=== PATIENT | female | born 1965 | race Caucasian/White ===

== ENCOUNTER 2017-07-26 14:25 | Inpatient (IN) ==
[2017-07-26] MEDS ORDERED: *HR* HYDROmorphone (PF) 1 MG/ML SYRINGE IVP ONE ×3 (15:30→19:29)
[2017-07-26] MEDS ORDERED: 0.9 % Sodium Chloride 1,000 ML IVC ONE (15:30)
[2017-07-26] MEDS ORDERED: Ondansetron 4 MG/2 ML VIAL IVP ONE ×2 (15:30→18:01)
--- NOTE | 2017-07-26 15:40 | Emergency Department Note ---
Disposition Clinical Impression: Abscess of jaw, left Disposition: Admitted As Inpatient Condition: Fair Time of Disposition: 18:00 General Adult HPI - General Chief complaint: ED Dental/Oral Stated complaint: dental pain Time Seen by Provider: 07/26/17 14:42 Source: patient Mode of arrival: ambulatory Limitations: no limitations Nursing Notes Reviewed: Yes Vital Signs Reviewed: Yes - History of Present Illness HPI Narrative: Patient is a 52-year-old female with no pertinent past medical history presenting to his primary complaint of left sided jaw pain status post teeth removal. The patient states that 2 weeks ago she was seen at [facility] and she had 8 teeth removed out of her bottom jaw. She states since that time she has has swelling and increasing pain on the left side of her jaw. She states that she returned to the facility one week ago and they told her that this is normal swelling and it should improve on her own. However, the patient states that the swelling has been increasing and she now has moderate pain on that left side with draining down the back of her throat as well as difficulty with opening her mouth and chewing. She denies any fevers, chills, nausea, vomiting. She states that she was seen in urgent care 3 days ago and she was given steroids and [place] however this does not help the pain. Pain Scale: 6 - Related Data Home Medications Medication Instructions Recorded Confirmed Clonazepam 10/29/15 [place] 5-325 mg 10/29/15 Seroquel 10/29/15 Carbidopa-Levo ER 25-100 Tab 07/24/17 07/24/17 Gabapentin [Neurontin] 07/24/17 HydrOXYzine Pamoate [Vistaril] 07/24/17 Meloxicam 07/24/17 Potassium Chloride 07/24/17 Raloxifene 07/24/17 Venlafaxine HCl 07/24/17 Venlafaxine XR (24 HR) [Effexor XR] 07/24/17 Previous Rx's Medication Instructions Recorded Naproxen [Naprosyn] 500 mg PO BID 3 Days tablet 10/29/15 HYDROcodone/Acet 5/325 mg [[place] 1 tab PO Q6H PRN #8 tab MDD 4 tabs 07/24/17 5-325 mg] MethylPREDNISolone 4 mg PO PER PKG DI #21 tab 07/24/17 [MethylPREDNISolone Dose Pack] Allergies Allergy/AdvReac Type Severity Reaction Status Date / Time No Known Allergies Allergy Verified 07/26/17 14:31 Review of Systems: Constitutional: No fever ENT: No rhinorrhea, jaw pain on the left with swelling, and pustular drainage. Respiratory: No cough, no difficulty breathing Cardiac: No chest pain or palpitations Allergic: No allergies GI: No abdominal pain or diarrhea. No nausea or vomiting. Hematologic: No bruising Dermatologic: No skin rash Musculoskeletal: No pain in the extremities Neuro: No numbness of the extremities All systems ED: reviewed and negative except as stated. Review of Systems: As Per HPI Past Medical History - Past Medical History Medical history: Reports: no medical history Psychiatric history: Reports: anxiety, depression - Social History Smoking Status: Current every day smoker Smokeless Tobacco Status: No Alcohol use: Reports: none Drug use: Reports: none Physical Exam CONSTITUTIONAL: Alert and oriented X3, well-nourished, in no apparent distress HEAD: Normocephalic; atraumatic. Patient has large swelling to the left side over the parotid gland/angle of mandible stemming down into the submandibular region. This area of swelling does feel fluctuant. There is no erythema over the area or crepitance. EYES: PERRL, no scleral icterus. NOSE: The nose is normal in appearance without rhinorrhea MOUTH: Patient's mouth does appear that she had a procedure in which the teeth on the bottom row were removed and appears to be well hearing in the healing in the front. However back near the molar spaces there is mild gingival swelling, however this exam is limited due to the patient only be also open her mouth by about 1/2 cm secondary to the pain caused by the swelling. RESP: Normal chest excursion with respiration; breath sounds clear and equal bilaterally; no wheezes, rhonchi, or rales CARD: Regular rhythm, without murmurs, rub or gallop ABD: Non-distended; non-tender, soft,without rigidity, rebound or guarding SKIN: Normal for age and race; warm and dry; no apparent lesions - General General appearance: alert, in no apparent distress Course Course Narrative: Patient is a 52-year-old female with past medical history of a teeth being removed from her lower jaw for denture placement. She is complaining of swelling on that left side over the mandible and submandibular region that has been going on since the procedure started and has been worsening since that time to the point now where the patient has severe pain she has limited motion of her jaw she states she is having difficulty with eating she feels drainage down the back of her throat. Plan for this patient is a treat her pain and treat nausea I will also order a CT of the neck to obtain a review of the affected area will reevaluate the patient. I think concern is for an infection of the soft tissue or bone. - Reevaluation(s) Reevaluation #1: Spoke with Dr. Browne about the patient's case. He will see the patient tonight to see if she is a candidate for bedside drainage, if not operative drainage will happen in the morning. Request treatment the patient to the hospitalist service. I discussed these findings with the patient, patient agrees with that plan. She requested additional pain medications. Dr. Browne also requested we start the patient on clindamycin since she is recently on Augmentin. Time: 17:57 Reevaluation #2: I spoke with Alirio Tsai and she agrees to accept the patient to the hospitalist with consult to ENT. Discussed my conversation with Dr. Martinez and she agrees with this plan. Time: 18:15 Vital Signs Temperature 98.5 F 07/26/17 14:27 Pulse Rate 84 07/26/17 14:27 Respiratory Rate 16 07/26/17 14:27 Blood Pressure 149/91 07/26/17 14:27 O2 Sat by Pulse Oximetry 97 07/26/17 14:27 Temperature 0 F L 07/26/17 18:44 Pulse Rate 84 07/26/17 16:17 Respiratory Rate 18 07/26/17 18:44 Blood Pressure 138/82 07/26/17 18:44 O2 Sat by Pulse Oximetry 98 07/26/17 16:17 Oxygen Delivery Oxygen Delivery Room Air Medical Decision Making - Medical Records Medical records reviewed: Yes I reviewed the patient's medical records. - Lab Data Lab results reviewed: Yes I reviewed the patient's lab results. Result diagrams: 07/26/17 15:30 07/26/17 15:30 Lab Results 07/26/17 07/26/17 Range/Units 15:30 15:30 WBC 30.8 H* D (4.3-11.1) K/mcL RBC 4.07 (3.82-4.97) M/mcL Hgb 11.3 L (11.5-15.4) g/dL Hct 34.7 L (35.3-44.9) % MCV 85.3 (83.0-100.0) fL MCH 27.8 L (28.0-33.3) pg MCHC 32.6 (31.6-35.5) g/dL RDW 18.1 H (11.5-14.5) % Plt Count 508 H D (140-400) K/mcL MPV 9.9 (9.4-12.4) fL Seg Neutrophils % 88.0 % Lymphocytes % 10.0 % Monocytes % 2.0 % Neutrophils # 27.1 H (1.6-8.9) K/mcL Lymphocytes # 3.1 (0.6-4.6) K/mcL Monocytes # 0.6 (0.0-1.3) K/mcL Platelet Estimate Increased H (Normal) Anisocytosis 1+ A (Not Present) Sodium 141 (136-145) mEq/L Potassium 3.2 L (3.5-4.5) mEq/L Chloride 115 H (98-109) mEq/L Carbon Dioxide 13 L (19-29) mEq/L BUN 11 (7-20) mg/dL Creatinine 0.87 (0.57-1.11) mg/dL Est GFR ( Amer) > 60 (> 60) Est GFR (Non-Af Amer) > 60 (> 60) BUN/Creatinine Ratio 13 (6-26) Glucose 112 H (70-99) mg/dL Calculated Osmolality 292 (280-300) Calcium 8.7 (8.6-10.8) mg/dL - Radiology Data Radiology results reviewed: Yes I reviewed the patient's radiology results. Soft Tissue Neck CT 07/26/17 15:29 IMPRESSION: Approximately 4.9 x 3.5 x 4.6 cm irregular peripherally enhancing collection centered within the left recruiter specialist space adjacent to the left mandible. Extension of this fluid collection into adjacent structures as detailed above. Findings are most concerning for infectious abscess.Necrotic neoplasm would be extremely rare. Patient does not have any teeth, and reports recent tooth extraction two weeks ago. Mild mass effect on the adjacent oropharyngeal airway. Mildly enlarged bilateral cervical lymph nodes. Nonspecific ground-glass pulmonary opacities are partially imaged. Findings could represent atelectasis, edema, or atypical infection. D/ / 07/26/2017 17:40:32 Nick Razo MD / liliya Interpreting Provider: Nick Razo MD Attestation Statement - Attestation Attestation: I examined this patient and my medical decision-making was reviewed with the Resident Physician. I agree with the documented findings, disposition and treatment plan as described.
[2017-07-26 15:44] LABS: Hematocrit 34.7 % (35.3-44.9); Hemoglobin 11.3 g/dL (11.5-15.4); Mean Corpuscular HGB Conc 32.6 g/dL (31.6-35.5); Mean Corpuscular Hemoglobin 27.8 pg (28.0-33.3); Mean Corpuscular Volume 85.3 fL (83.0-100.0); Red Blood Count 4.07 M/mcL (3.82-4.97); Red Cell Distribution Width 18.1 % (11.5-14.5)
[2017-07-26 15:45] LABS: Mean Platelet Volume 9.9 fL (9.4-12.4); Platelet Count 508 K/mcL (140-400)
[2017-07-26 15:56] LABS: BUN/Creatinine Ratio 13 (6-26); Blood Urea Nitrogen 11 mg/dL (7-20); Calcium 8.7 mg/dL (8.6-10.8); Carbon Dioxide 13 mEq/L (19-29); Chloride 115 mEq/L (98-109); Glucose 112 mg/dL (70-99); Osmolality,Calculated 292 (280-300); Potassium 3.2 mEq/L (3.5-4.5); Sodium 141 mEq/L (136-145); eGFR For African Americans > 60 (> 60); eGFR For Non-African Americans > 60 (> 60)
[2017-07-26 16:05] LABS: Lymphocytes # 3.1 K/mcL (0.6-4.6); Monocytes # 0.6 K/mcL (0.0-1.3); Neutrophils # 27.1 K/mcL (1.6-8.9)
[2017-07-26 16:06] LABS: Anisocytosis 1+ (Not Present); Platelet Estimate Increased (Normal)
[2017-07-26] MEDS ORDERED: Ampicillin/Sulbactam 3,000 MG in 0.9 % Sodium Chloride Mini Bag 100 ML IVPB ONE (17:53)
[2017-07-26] MEDS ORDERED: Clindamycin 900 MG/50 ML 900 MG/50 ML IV.SOLN IVPB ONE (18:00)
[2017-07-26] MEDS ORDERED: Clindamycin 600 MG/50 ML 600 MG/50 ML IV.SOLN IVPB ONE (18:01)
--- NOTE | 2017-07-26 19:24 | ENT - Consult Note ---
Date of Encounter: 07/26/17 Time of Encounter: 19:21 Assessment and Plan (1) Neck abscess Current Visit: Yes Status: Acute s/p bedside I&D today. Patient tolerated this well. Please change dressing as needed. 09/10" packing gauze in place, will pull each day until out. Approx 2 inches placed. Cultures taken, will await sensitivities. Clindamycin IV for now. There is mention of C Diff in her chart but she denies this and any hx of severe diarrhea. Ok for regular diet as tolerated Afebrile, WBC 30. Watch WBC count and temp curves. (2) S/P tooth extraction Current Visit: No Status: Acute (3) Abscess of jaw, left Current Visit: Yes Status: Acute (4) Leukocytosis Current Visit: Yes Status: Acute Qualifiers: Qualified Code(s): D72.829 - Elevated white blood cell count, unspecified History of Present Illness Consult date: 07/26/17 Reason for ENT Consult: other (neck abscess) History of present illness: Pt is a 52 yo female with a left neck abscess involving the dial buffer space. She had left mandibular dental extractions 2 weeks ago with progression of pain , swelling, and fluctuance over the last week. Was seen in an urgent care. Has failed outpatient Augmentin over the last few days. Denies SOB, dyspnea, or airway concerns. Her main complaint is the swelling and pain. Admits to increasing odynophagia but is able to swallow food once she gets it. + trismus. Denies ill symptoms such fever, sweats, or nausea. Denies prior abscess in the head and neck. She had her maxillary teeth pulled years ago without problem. Denies bleeding disorders or blood thinner use. Daily smoker. Past Med Surg Social Fam HX - Past Medical History Medical history: no medical history Psychiatric history: anxiety, depression - Social History Smoking Status: Current every day smoker Smokeless Tobacco Status: No Alcohol use: none Drug use: none Medications and Allergies Clonazepam 10/29/15 [History] Naproxen [Naprosyn] 500 mg PO BID 3 Days tablet 10/29/15 [Rx] [place] 5-325 mg 10/29/15 [History] Seroquel 10/29/15 [History] Carbidopa-Levo ER 25-100 Tab 07/24/17 [History] Gabapentin [Neurontin] 07/24/17 [History] HYDROcodone/Acet 5/325 mg [[place] 5-325 mg] 1 tab PO Q6H PRN #8 tab MDD 4 tabs [Rx] HydrOXYzine Pamoate [Vistaril] 07/24/17 [History] Meloxicam 07/24/17 [History] MethylPREDNISolone [MethylPREDNISolone Dose Pack] 4 mg PO PER PKG DI #21 tab [Rx] Potassium Chloride 07/24/17 [History] Raloxifene 07/24/17 [History] Venlafaxine HCl 07/24/17 [History] Venlafaxine XR (24 HR) [Effexor XR] 07/24/17 [History] 3 Allergy/AdvReac Type Severity Reaction Status Date / Time No Known Allergies Allergy Verified 07/26/17 14:31 ENT - ROS All systems PM: reviewed and no additional remarkable complaints except as stated ENT Exam Initial Vital Signs Temp Pulse Resp BP Pulse Ox 98.5 F 84 16 149/91 97 07/26/17 14:27 07/26/17 14:27 07/26/17 14:27 07/26/17 14:27 07/26/17 14:27 - General physical appearance well developed, well nourished, no distress - Eyes PERRL, normal ocular movement - ENT normal pinna, normal nares, Other (left dial buffer space abscess with fluctuance overlying the angle of the left mandible that extends to the left neck. No ear involvement. Minimal skin cellulitis. + trisumus, no obvious abscess identified intraorally. Evidence of recent mandibular dental extractions. Facial nerve intact b/l) - Neck other (see ENT exam above, left neck abscess overlying the angle of the mandible ) - Respiratory normal expansion, normal respiratory effort - Abdomen Abdomen: no tender, no distended - Integumentary no rash, no growths - Neurologic CN 2-12 grossly intact - Musculoskeletal normal gait, normal posture - Psychiatric oriented to time, oriented to person, oriented to place - Additional Findings Procedure note: Preop dx: Left neck abscess Postop dx: same Procedure: I&D left neck abscess Anesthesia: local with 1% lido with 1:100,000 epi 10ml used. Complications: none specimen: cultures EBL: less than 10ml Procedure: After consent was signed, time out was done. I cleaned the area over the abscess with betadine and injected local anesthetic into the skin and surrounding tissues. A 15 blade scalpel was used to make a 1cm incision near the angle the mandible. Dissection continued with a hemastat until the abscess cavity was entered. Large amounts of purulence drained freely and cultures were taken. Once drained, sterile saline was used to irrigate the wound and it was suctioned dry. 09/10" packing gauze was placed into the wound which was left open. A clean gauze and tape dressing was then applied over the wound. The patient tolerated this well. Exam Initial Vital Signs Temp Pulse Resp BP Pulse Ox 98.5 F 84 16 149/91 97 07/26/17 14:27 07/26/17 14:27 07/26/17 14:27 07/26/17 14:27 07/26/17 14:27 Results - Labs 07/26/17 15:30 07/26/17 15:30 Abnormal lab results WBC 30.8 K/mcL (4.3-11.1) H* D 07/26/17 15:30 Hgb 11.3 g/dL (11.5-15.4) L 07/26/17 15:30 Hct 34.7 % (35.3-44.9) L 07/26/17 15:30 MCH 27.8 pg (28.0-33.3) L 07/26/17 15:30 RDW 18.1 % (11.5-14.5) H 07/26/17 15:30 Plt Count 508 K/mcL (140-400) H D 07/26/17 15:30 Neutrophils # 27.1 K/mcL (1.6-8.9) H 07/26/17 15:30 Platelet Estimate Increased (Normal) H 07/26/17 15:30 Anisocytosis 1+ (Not Present) A 07/26/17 15:30 Potassium 3.2 mEq/L (3.5-4.5) L 07/26/17 15:30 Chloride 115 mEq/L (98-109) H 07/26/17 15:30 Carbon Dioxide 13 mEq/L (19-29) L 07/26/17 15:30 Glucose 112 mg/dL (70-99) H 07/26/17 15:30 All other labs normal. Consult Discharge Plan - Plan Referrals: Franco Moreno MD [Primary Care Provider] -
[2017-07-26] MEDS ORDERED: Lidocaine/EPI 1:100k 1% 20 ML VIAL INFILT ONE (19:25)
[2017-07-26] MEDS ORDERED: *HR* Morphine 2 MG/ML SYRINGE IVP PRN (22:09)
[2017-07-26] MEDS ORDERED: Naloxone 0.4 MG/ML INJ IVP PRN (22:17)
--- NOTE | 2017-07-26 22:23 | Internal Med History&Physical ---
<Tomas Ramachandran - Last Filed: 07/26/17 22:21> Date of Encounter: 07/26/17 Time of Encounter: 22:21 Assessment and Plan (1) Abscess of jaw, left Current visit: Yes Status: Acute Abscess of left jaw, likely source of infection due to multiple tooth extractions approximately 2 weeks ago. ENT consulted, performed bedside incision and drainage today 1/4 inch gauze packing placed a drainage site with orders to change daily Wound cultures obtained, anaerobic cultures obtained, blood cultures obtained Start vancomycin with pharmacy to dose now and Zosyn every 8 hours now Patient is hemodynamically stable, afebrile and nontoxic appearing. However she does have leukocytosis with leftward shift neutrophils 27.1. Continue watch for signs or symptoms of infection, CBC and BMP in the morning (2) Jaw pain Current visit: Yes Status: Acute Continues to have pain at site of abscess. Pain is improved since incision and drainage. Start morphine 4 mg IV push every 6 hours when necessary for severe pain (3) S/P tooth extraction Current visit: Yes Status: Acute And 8 teeth extracted approximately 2 weeks ago. Is reporting an increase in pain and swelling the left jaw. CT of the head reveals abscess of left jaw. See plan above (4) Leukocytosis Current visit: Yes Status: Acute Leukocytosis with neutrophils of 27.1. Patient appears nontoxic. Infection the result of left jaw abscess. See plan above Qualifiers: Leukocytosis type: unspecified Qualified Code(s): D72.829 - Elevated white blood cell count, unspecified Internal Medicine - H&P: HPI Chief complaint: ABSCESS OF LEFT JAW Admitted From: Home Plans for Post Hospital Care: Home History of present illness: Ms. Johnson is a 52 year old female reporting no prior past medical history. Presents to [facility] today with pain and swelling of left jaw and left neck. She reports that approximately 2 weeks ago she had a dental extraction involving 8 teeth. She reports that for the last 2 weeks she has had an increase in pain and swelling of her left jaw. She reports that she went back to dental office where procedure was completed and they told her that swelling and pain were normal and should improve with time. Additionally she reports that she went to urgent care and was given Augmentin, however has failed outpatient treatment swelling and pain persists. She denies shortness of breath, nausea, vomiting, night sweats, headaches. Admits to fever, chills, difficulty chewing and swallowing. Workup in the emergency department revealed elevated WBCs at 30.[address] of head reveals left total abscess Past Med Surg Social Fam HX - Past Medical History Medical history: no medical history Psychiatric history: anxiety, depression - Social History Smoking Status: Current every day smoker Smokeless Tobacco Status: No Alcohol use: none Drug use: none - Additional Family History Additional family history: Noncontributory Internal Medicine - H&P: Meds Clonazepam 10/29/15 [History] Naproxen [Naprosyn] 500 mg PO BID 3 Days tablet 10/29/15 [Rx] [place] 5-325 mg 10/29/15 [History] Seroquel 10/29/15 [History] Carbidopa-Levo ER 25-100 Tab 07/24/17 [History] Gabapentin [Neurontin] 07/24/17 [History] HYDROcodone/Acet 5/325 mg [[place] 5-325 mg] 1 tab PO Q6H PRN #8 tab MDD 4 tabs [Rx] HydrOXYzine Pamoate [Vistaril] 07/24/17 [History] Meloxicam 07/24/17 [History] MethylPREDNISolone [MethylPREDNISolone Dose Pack] 4 mg PO PER PKG DI #21 tab [Rx] Potassium Chloride 07/24/17 [History] Raloxifene 07/24/17 [History] Venlafaxine HCl 07/24/17 [History] Venlafaxine XR (24 HR) [Effexor XR] 07/24/17 [History] 3 Allergy/AdvReac Type Severity Reaction Status Date / Time No Known Allergies Allergy Verified 07/26/17 14:31 All Systems PM: A 10-system review of systems was performed and is negative for pertinent findings except as documented above in the HPI. - Constitutional Constitutional: chills, fatigue, fever(s), lethargy - EENT Nose, mouth and throat: facial pain, no mouth pain, no neck mass, no sore throat , no throat swelling, no tongue swelling Additional comments: Swelling of left jaw, positive for trismus, pain in left chest radiating to left neck - Cardiovascular Cardiovascular ROS IM: no chest pain, no diaphoresis, no dyspnea, no lightheadedness, no palpitations, no syncope - Respiratory Respiratory: no cough, no dyspnea, no wheezing, no excessive phlegm production - Gastrointestinal Gastrointestinal: no abdominal pain, no diarrhea, no hematemesis, no hematochezia, no melena, no nausea, no vomiting - Genitourinary Genitourinary: no change in urinary stream, no dysuria, no flank pain, no hematuria - Musculoskeletal Musculoskeletal ROS IM: no numbness, no tingling - Integumentary Integumentary IM: no rash, no unusual bruising - Constitutional Vitals: Temp Pulse Resp BP Pulse Ox 99.1 F 94 15 129/85 93 07/26/17 19:34 07/26/17 19:34 07/26/17 19:34 07/26/17 19:34 07/26/17 19:34 General appearance: Present: cooperative, A&O X 3, no acute distress, answers questions appropriately - Head Head exam: Present: atraumatic, normocephalic - ENT Additional comments: Incision and drainage of left jaw with ribbon packing, no swelling at this time. Left jaw tender to palpation - Neck Neck exam general surgery: Present: supple, trachea midline. Absent: tenderness - Respiratory Respiratory exam: Present: CTAB. Absent: accessory muscle use, rales, rhonchi, wheezes - Cardiovascular Cardiovascular exam: Present: RRR, +S1, +S2. Absent: diastolic murmur, gallop, rubs, systolic murmur - GI/Abdominal GI/Abdominal exam: Present: normal bowel sounds, soft, no peritoneal signs. Absent: distended, tenderness - Extremities Exam Extremities exam: Present: warm, radial pulses palpable and symmetrical. Absent : calf tenderness, cyanotic, pedal edema - Neurological Exam Neurological exam: Present: alert, oriented X3. Absent: facial droop, speech deficit - Skin Skin exam: Present: dry, intact Internal Med - H&P Results - Labs CBC & Chem 7: 07/26/17 15:30 07/26/17 15:30 - Diagnostic Studies CT scan - head Status: image reviewed by me Additional comments: 1. Approximately 4.9 x 3.5 x 4.6 cm irregular peripherally enhancing collection centered within the left drill presser space adjacent to the left mandible. Extension of this fluid collection into adjacent structures as detailed above. Findings are most concerning for infectious abscess.Necrotic neoplasm would be extremely rare. Patient does not have any teeth, and reports recent tooth extraction two weeks ago. 2. Mild mass effect on the adjacent oropharyngeal airway. 3. Mildly enlarged bilateral cervical lymph nodes. 4. Nonspecific ground-glass pulmonary opacities are partially imaged. Findings could represent atelectasis, edema, or atypical infection. - VTE Reasons for not Prescribing Prophylaxis: Treatment not Indicated - Low risk for VTE <Dave Salmeron - Last Filed: 07/27/17 04:55> Date of Encounter: 07/27/17 Internal Medicine - H&P: HPI History of present illness: Ms. Johnson is a 52 year old female All Systems PM: A 10-system review of systems was performed and is negative for pertinent findings except as documented above in the HPI. - Constitutional Vitals: Temp Pulse Resp BP Pulse Ox 98.5 F 85 16 106/63 95 07/27/17 03:41 07/27/17 03:41 07/27/17 03:41 07/27/17 03:41 07/27/17 03:41 Internal Med - H&P Results - Labs CBC & Chem 7: 07/26/17 15:30 07/26/17 15:30 - Attending Attestation I have seen and examined the patient independently. I have discussed with CLIENT APPLICATION SUPPORT SPECIALIST Mr Ramachandran regarding the management. Agree with that documentation. Patient has a jaw abscess. ENT saw patient and did I and D. We will continue antibiotics. Follow blood and wound culture results
[2017-07-26] MEDS ORDERED: Vancomycin 750 MG in D5% in Water 250 ML IVPB SCH (23:00)
[2017-07-26] MEDS: Vancomycin 750 MG in D5% in Water 250 ML IVPB SCH (23:32)
[2017-07-26] MEDS: Piperacillin/Tazobactam 3.375 GM in D5% in Water 50 ML IVPB SCH (23:33)
[2017-07-27] MEDS ORDERED: 0.9 % Sodium Chloride 250 ML ONE (00:34)
[2017-07-27 04:49] LABS: Basophils % 0.2 %; Eosinophils # 0.2 K/mcL (0.0-0.6); Eosinophils % 1.3 %; Hematocrit 30.6 % (35.3-44.9); Immature Granulocytes % 0.8 % (0-4); Lymphocytes % 11.2 %; Mean Corpuscular HGB Conc 32.7 g/dL (31.6-35.5); Mean Corpuscular Hemoglobin 27.9 pg (28.0-33.3); Mean Corpuscular Volume 85.2 fL (83.0-100.0); Mean Platelet Volume 9.8 fL (9.4-12.4); Monocytes # 1.2 K/mcL (0.0-1.3); Monocytes % 6.4 %; Neutrophils # 14.3 K/mcL (1.6-8.9); Platelet Count 431 K/mcL (140-400); Red Blood Count 3.59 M/mcL (3.82-4.97); Red Cell Distribution Width 18.5 % (11.5-14.5); Segmented Neutrophils % 80.1 %
[2017-07-27] MEDS ORDERED: *HR* Morphine 2 MG/ML SYRINGE IVP PRN (04:54)
[2017-07-27 05:02] LABS: BUN/Creatinine Ratio 13 (6-26); Blood Urea Nitrogen 9 mg/dL (7-20); Calcium 7.8 mg/dL (8.6-10.8); Carbon Dioxide 14 mEq/L (19-29); Chloride 116 mEq/L (98-109); Glucose 93 mg/dL (70-99); Osmolality,Calculated 286 (280-300); Potassium 2.9 mEq/L (3.5-4.5); Sodium 139 mEq/L (136-145); eGFR For African Americans > 60 (> 60); eGFR For Non-African Americans > 60 (> 60)
[2017-07-27] MEDS ORDERED: Aminoglycoside Consult 1 EACH MC ONE (08:10)
[2017-07-27] MEDS: Piperacillin/Tazobactam 3.375 GM in D5% in Water 50 ML IVPB SCH (08:19)
--- NOTE | 2017-07-27 08:45 | Internal Med Progress Note ---
<Shalonda Garcia - Last Filed: 07/27/17 11:07> Date of Encounter: 07/27/17 Time of Encounter: 08:30 - Assessment and plan (1) Abscess of jaw, left Current Visit: Yes Status: Acute Assessment and plan: -I & D done yesterday by ENT. Dressing is clean, dry, and intact. -No wound culture or blood culture results available. -IV antibiotics: Vancomycin and Zosyn -Leukocytosis improved, now 17.8 and neutrophil count decreased to 14.3 -Continue dressing changes and wound packing as described by ENT. -Continue monitoring WBC count and temperature. (2) Jaw pain Current Visit: Yes Status: Acute Assessment and plan: -some tenderness to palpation around I & D site -received 2mg morphine this AM for pain (3) S/P tooth extraction Current Visit: Yes Status: Acute Assessment and plan: -s/p extraction of 8 teeth approx 2 weeks ago. 07/26/17 CT head showed abscess of left jaw, I & D of abscess as above (4) Leukocytosis Current Visit: Yes Status: Acute Assessment and plan: -afebrile, non-toxic appearing, normotensive, no tachycardia -receiving IV vancomycin and zosyn -white count has decreased to 17.8 and neutrophil count has decreased to 14.3 Qualifiers: Leukocytosis type: unspecified Qualified Code(s): D72.829 - Elevated white blood cell count, unspecified - Subjective Interval history: Patient seen and examined at bedside this morning. Patient states she is feeling quite well. She denies left-sided facial pain or neck pain this morning. She denies fever, chills, chest pain, cough, difficulty breathing, abdominal pain, nausea, emesis. - Constitutional Vitals: Temp Pulse Resp BP Pulse Ox 97.9 F 92 15 118/58 92 07/27/17 06:42 07/27/17 06:42 07/27/17 06:42 07/27/17 06:42 07/27/17 06:42 General appearance: Present: cooperative, A&O X 3, no acute distress, answers questions appropriately - Head Head exam: Present: atraumatic, normocephalic Additional comments: I & D site Lt mandible, dressing is clean, dry, and intact - Eye Eye exam: Present: EOMI - ENT ENT exam: Present: mucous membranes moist - Neck Neck exam general surgery: Present: trachea midline Additional comments: no significant neck swelling, good ROM without pain - Respiratory Respiratory exam: Present: rales (RLL). Absent: respiratory distress, rhonchi, wheezes, tachypnea - Cardiovascular Cardiovascular exam: Present: RRR, +S1, +S2. Absent: diastolic murmur, systolic murmur - GI/Abdominal GI/Abdominal exam: Present: normal bowel sounds, soft. Absent: tenderness - Neurological Exam Neurological exam: Present: alert, altered, oriented X3, no focal deficits. Absent: facial droop, speech deficit Internal Medicine: Result - Labs CBC & Chem 7: 07/27/17 04:22 07/27/17 04:22 Labs: Short CBC 07/27/17 Range/Units 04:22 WBC 17.8 H (4.3-11.1) K/mcL Hgb 10.0 L (11.5-15.4) g/dL Hct 30.6 L (35.3-44.9) % Plt Count 431 H (140-400) K/mcL Neutrophils # 14.3 H (1.6-8.9) K/mcL BMP 07/27/17 04:22 Sodium 139 Potassium 2.9 L Chloride 116 H Carbon Dioxide 14 L BUN 9 Creatinine 0.67 Glucose 93 Calcium 7.8 L - VTE Reasons for not Prescribing Prophylaxis: Treatment not Indicated - Low risk for VTE Consult Discharge Plan - Plan Referrals: Franco Moreno MD [Primary Care Provider] - <Mo Meier H - Last Filed: 07/27/17 15:22> Date of Encounter: 07/27/17 - Constitutional Vitals: Temp Pulse Resp BP Pulse Ox 98.8 F 73 14 118/69 98 07/27/17 14:42 07/27/17 14:42 07/27/17 14:42 07/27/17 14:42 07/27/17 14:42 Internal Medicine: Result - Labs CBC & Chem 7: 07/27/17 04:22 07/27/17 04:22 Labs: Short CBC 07/27/17 Range/Units 04:22 WBC 17.8 H (4.3-11.1) K/mcL Hgb 10.0 L (11.5-15.4) g/dL Hct 30.6 L (35.3-44.9) % Plt Count 431 H (140-400) K/mcL Neutrophils # 14.3 H (1.6-8.9) K/mcL BMP 07/27/17 04:22 Sodium 139 Potassium 2.9 L Chloride 116 H Carbon Dioxide 14 L BUN 9 Creatinine 0.67 Glucose 93 Calcium 7.8 L - Attending Attestation 1)sepsis 2ry to left periodontal/jaw abscess switch antibiotic therapy to Unasyn 3 g IV q6h IVF await cultures toradol prn 2) tobacco use nicotine patch 3) hypokalemia, replete as needed 4) depression I examined this patient and my medical decision-making was reviewed with the Resident Physician. I agree with the documented findings, disposition and treatment plan as described except to the extent set forth below.
[2017-07-27] MEDS ORDERED: Potassium Chloride Elixir 20 MEQ/15 ML UDC PO ONE (10:14)
[2017-07-27 10:36] LABS: Magnesium 1.8 mg/dL (1.6-2.6)
[2017-07-27] MEDS: Vancomycin 750 MG in D5% in Water 250 ML IVPB SCH (11:34)
[2017-07-27] MEDS: *HR* Morphine 2 MG/ML SYRINGE IVP PRN ×3 (13:07→19:41)
[2017-07-27] MEDS ORDERED: Ampicillin/Sulbactam 3,000 MG in 0.9 % Sodium Chloride Mini Bag 100 ML IVPB SCH (15:08)
[2017-07-27] MEDS: Ketorolac 30 MG/ML VIAL IVP PRN (16:57)
--- NOTE | 2017-07-27 17:04 | ENT - Progress Note ---
<Heather Godinez - Last Filed: 07/27/17 17:02> Date of Encounter: 07/27/17 Time of Encounter: 17:02 - Assessment and Plan (1) Abscess of jaw, left Current Visit: Yes Status: Acute Patient seen and examined at bedside. No drainage noted from incision site. Area of induration noted to be 4x6cm in size, with no warmth, or redness present. 2cm packing left in place, new clean outer dressing applied. Will reassess in the A.M. Continue current IV antibiotic regimen and transition to oral antibiotics at discharge. Awaiting cultures at this time. (2) Jaw pain Current Visit: Yes Status: Acute Mild pain noted with palpation of I&D site and surrounding tissue. Continue current pain management measures. (3) S/P tooth extraction Current Visit: Yes Status: Acute Continue current IV antibiotic regimen at this time, awaiting cultures. If reformation occurs patient may need transferred to tertiary facility with oral surgeon. (4) Thrush, oral Current Visit: Yes Status: Acute Noted to be present on tongue and buccal mucosa. Will start Nystatin swish and spit. Subjective Patient reports: feels better, still having pain, pain is less, tolerating liquids well, tolerating a regular diet, afebrile Objective Initial Vital Signs Temp Pulse Resp BP Pulse Ox 98.5 F 84 16 149/91 97 07/26/17 14:27 07/26/17 14:27 07/26/17 14:27 07/26/17 14:27 07/26/17 14:27 - General physical appearance no distress - Eyes normal ocular movement - ENT normal pinna, normal nares, Other (4 x6 cm area of induration surrounding I&D incision site with no redness or warmth noted, no purulent drainage noted, packing in place. Patient noted to have trismus, 2 cm. Edentulous lower gums, with upper denture plate in place. White coating present on top of tongue and buccal mucosa. ) - Neck no masses, trachea midline - Respiratory normal expansion, normal respiratory effort - Labs 07/27/17 04:22 07/27/17 04:22 Diabetes panel 07/27/17 Range/Units 04:22 Sodium 139 (136-145) mEq/L Potassium 2.9 L (3.5-4.5) mEq/L Chloride 116 H (98-109) mEq/L Carbon Dioxide 14 L (19-29) mEq/L BUN 9 (7-20) mg/dL Creatinine 0.67 (0.57-1.11) mg/dL Glucose 93 (70-99) mg/dL Calcium 7.8 L (8.6-10.8) mg/dL Calcium panel 07/27/17 Range/Units 04:22 Calcium 7.8 L (8.6-10.8) mg/dL Pituitary panel 07/27/17 Range/Units 04:22 Sodium 139 (136-145) mEq/L Potassium 2.9 L (3.5-4.5) mEq/L Chloride 116 H (98-109) mEq/L Carbon Dioxide 14 L (19-29) mEq/L BUN 9 (7-20) mg/dL Creatinine 0.67 (0.57-1.11) mg/dL Glucose 93 (70-99) mg/dL Calcium 7.8 L (8.6-10.8) mg/dL Adrenal panel 07/27/17 Range/Units 04:22 Sodium 139 (136-145) mEq/L Potassium 2.9 L (3.5-4.5) mEq/L Chloride 116 H (98-109) mEq/L Carbon Dioxide 14 L (19-29) mEq/L BUN 9 (7-20) mg/dL Creatinine 0.67 (0.57-1.11) mg/dL Glucose 93 (70-99) mg/dL Calcium 7.8 L (8.6-10.8) mg/dL - VTE Reasons for not Prescribing Prophylaxis: Treatment not Indicated - Low risk for VTE Consult Discharge Plan - Plan Referrals: Franco Moreno MD [Primary Care Provider] - <Iliana Villar - Last Filed: 07/27/17 19:23> Date of Encounter: 07/27/17 - Assessment and Plan (1) Abscess of jaw, left Current Visit: Yes Status: Acute Agree with nurse practitioner's assessment above. Patient was examined together with the nurse practitioner. Patient with no purulent drainage from incision site. Packing remained clean. Likely remove packing tomorrow. We will continue to monitor. Objective Initial Vital Signs Temp Pulse Resp BP Pulse Ox 98.5 F 84 16 149/91 97 07/26/17 14:27 07/26/17 14:27 07/26/17 14:27 07/26/17 14:27 07/26/17 14:27 - Labs 07/27/17 04:22 07/27/17 04:22 Diabetes panel 07/27/17 Range/Units 04:22 Sodium 139 (136-145) mEq/L Potassium 2.9 L (3.5-4.5) mEq/L Chloride 116 H (98-109) mEq/L Carbon Dioxide 14 L (19-29) mEq/L BUN 9 (7-20) mg/dL Creatinine 0.67 (0.57-1.11) mg/dL Glucose 93 (70-99) mg/dL Calcium 7.8 L (8.6-10.8) mg/dL Calcium panel 07/27/17 Range/Units 04:22 Calcium 7.8 L (8.6-10.8) mg/dL Pituitary panel 07/27/17 Range/Units 04:22 Sodium 139 (136-145) mEq/L Potassium 2.9 L (3.5-4.5) mEq/L Chloride 116 H (98-109) mEq/L Carbon Dioxide 14 L (19-29) mEq/L BUN 9 (7-20) mg/dL Creatinine 0.67 (0.57-1.11) mg/dL Glucose 93 (70-99) mg/dL Calcium 7.8 L (8.6-10.8) mg/dL Adrenal panel 07/27/17 Range/Units 04:22 Sodium 139 (136-145) mEq/L Potassium 2.9 L (3.5-4.5) mEq/L Chloride 116 H (98-109) mEq/L Carbon Dioxide 14 L (19-29) mEq/L BUN 9 (7-20) mg/dL Creatinine 0.67 (0.57-1.11) mg/dL Glucose 93 (70-99) mg/dL Calcium 7.8 L (8.6-10.8) mg/dL
[2017-07-27] MEDS ORDERED: Ampicillin/Sulbactam 3,000 MG in 0.9 % Sodium Chloride 150 ML IVPB SCH (18:00)
[2017-07-27] MEDS ORDERED: Melatonin 3 MG TABLET PO PRN (19:12)
[2017-07-27] MEDS: Nystatin SUSP 5 ML UD.LIQ PO SCH (20:12)
[2017-07-27] MEDS: Famotidine 20 MG TABLET PO SCH (20:12)
[2017-07-27] MEDS: Ampicillin/Sulbactam 3,000 MG in 0.9 % Sodium Chloride 150 ML IVPB SCH (23:33)
[2017-07-28] MEDS: *HR* Morphine 2 MG/ML SYRINGE IVP PRN ×7 (01:22→20:34)
[2017-07-28] MEDS: Ampicillin/Sulbactam 3,000 MG in 0.9 % Sodium Chloride 150 ML IVPB SCH ×4 (05:44→23:50)
[2017-07-28] MEDS: Ketorolac 30 MG/ML VIAL IVP PRN (05:45)
[2017-07-28 06:46] LABS: Hematocrit 29.1 % (35.3-44.9); Hemoglobin 9.3 g/dL (11.5-15.4); Mean Corpuscular Hemoglobin 27.6 pg (28.0-33.3); Mean Corpuscular Volume 86.4 fL (83.0-100.0); Platelet Count 437 K/mcL (140-400); Red Blood Count 3.37 M/mcL (3.82-4.97); Red Cell Distribution Width 18.5 % (11.5-14.5)
[2017-07-28 06:51] LABS: BUN/Creatinine Ratio 10 (6-26); Blood Urea Nitrogen 6 mg/dL (7-20); Carbon Dioxide 19 mEq/L (19-29); Chloride 117 mEq/L (98-109); Glucose 95 mg/dL (70-99); Osmolality,Calculated 293 (280-300); Potassium 3.3 mEq/L (3.5-4.5); Sodium 143 mEq/L (136-145); eGFR For African Americans > 60 (> 60); eGFR For Non-African Americans > 60 (> 60)
[2017-07-28] MEDS: Nystatin SUSP 5 ML UD.LIQ PO SCH ×4 (07:39→20:33)
[2017-07-28] MEDS: Famotidine 20 MG TABLET PO SCH ×2 (07:39→20:32)
[2017-07-28] MEDS ORDERED: Ketorolac 30 MG/ML VIAL IVP PRN (13:56)
[2017-07-28] MEDS ORDERED: Dexamethasone 4 MG/ML VIAL IVP ONE (13:56)
--- NOTE | 2017-07-28 14:05 | ENT - Progress Note ---
Date of Encounter: 07/28/17 Time of Encounter: 14:02 - Assessment and Plan (1) Abscess of jaw, left Current Visit: Yes Status: Acute Patient seen and examined at bedside. No drainage noted from incision site. No fluctuant areas noted upon manual palpation. Area of induration improving, and measuring approximately 5.5x4 cm in size today, with no warmth, or redness present. 2cm packing removed, new clean outer dressing applied, no further need for packing of incision site at this time. Preliminary culture reports indicate no growth, however, recommend anerobic coverage with PO antibiotic at discharge. Also, recommend PO steroid dosing of 40mg daily x 4 days at discharge for reduction of inflammation and pain. Patient currently tolerating regular diet and liquids well, and is appropriate for discharge from ENT perspective. (2) Jaw pain Current Visit: Yes Status: Acute Patient reports decrease in pain today, with very little pain reported upon examination. Patient noted to have trismus, 2.5cm. One time dose of decadron IV ordered today to aid in reduction of inflammation and pain. Ice packs also ordered to be applied PRN for pain in affected area. (3) S/P tooth extraction Current Visit: Yes Status: Acute Recommend follow up with oral surgeon outpatient. (4) Thrush, oral Current Visit: Yes Status: Acute Noted to be present on tongue and buccal mucosa. Continue Nystatin swish and spit. Subjective Patient reports: feels better, pain is less, tolerating liquids well, tolerating a regular diet, afebrile Objective Initial Vital Signs Temp Pulse Resp BP Pulse Ox 98.5 F 84 16 149/91 97 07/26/17 14:27 07/26/17 14:27 07/26/17 14:27 07/26/17 14:27 07/26/17 14:27 - General physical appearance no distress - ENT normal pinna, normal nares, Other (no fluctuant areas noted upon palpation of buccal mucosa, 5.5x4cm area of induration present, no drainage present at incision site, no warmth, or erythema noted to surrounding tissue. 2cm ribbon packing removed from incision site. Noted to have trismus, 2.5 cm. ) - Neck no masses, trachea midline - Respiratory normal expansion, normal respiratory effort - Labs 07/28/17 05:33 07/28/17 05:33 Diabetes panel 07/28/17 Range/Units 05:33 Sodium 143 (136-145) mEq/L Potassium 3.3 L (3.5-4.5) mEq/L Chloride 117 H (98-109) mEq/L Carbon Dioxide 19 (19-29) mEq/L BUN 6 L (7-20) mg/dL Creatinine 0.60 (0.57-1.11) mg/dL Glucose 95 (70-99) mg/dL Calcium 8.0 L (8.6-10.8) mg/dL Calcium panel 07/28/17 Range/Units 05:33 Calcium 8.0 L (8.6-10.8) mg/dL Pituitary panel 07/28/17 Range/Units 05:33 Sodium 143 (136-145) mEq/L Potassium 3.3 L (3.5-4.5) mEq/L Chloride 117 H (98-109) mEq/L Carbon Dioxide 19 (19-29) mEq/L BUN 6 L (7-20) mg/dL Creatinine 0.60 (0.57-1.11) mg/dL Glucose 95 (70-99) mg/dL Calcium 8.0 L (8.6-10.8) mg/dL Adrenal panel 07/28/17 Range/Units 05:33 Sodium 143 (136-145) mEq/L Potassium 3.3 L (3.5-4.5) mEq/L Chloride 117 H (98-109) mEq/L Carbon Dioxide 19 (19-29) mEq/L BUN 6 L (7-20) mg/dL Creatinine 0.60 (0.57-1.11) mg/dL Glucose 95 (70-99) mg/dL Calcium 8.0 L (8.6-10.8) mg/dL - VTE Reasons for not Prescribing Prophylaxis: Treatment not Indicated - Low risk for VTE Consult Discharge Plan - Plan Referrals: Franco Moreno MD [Primary Care Provider] -
[2017-07-28] MEDS: Gabapentin 300 MG CAPSULE PO SCH ×2 (14:40→20:33)
[2017-07-28] MEDS ORDERED: Potassium Chloride 40 MEQ, Lidocaine 1% 2 ML in D5% in Water 500 ML IVPB ONE (18:28)
--- NOTE | 2017-07-28 18:32 | Internal Med Progress Note ---
Date of Encounter: 07/28/17 Time of Encounter: 18:29 - Assessment and plan (1) Abscess of jaw, left Current Visit: Yes Status: Acute - Subjective Interval history: Admitted for dental abscess. Discussed the case with ENT. Low-grade temp but WBC count has normalized. ENT recommended prednisone. Potassium is low and IV KCl 40 will be given and repeat level in the morning. Repeat CBC to anticipate discharge in 1-2 days. Still has trismus. - Constitutional Vitals: Temp Pulse Resp BP Pulse Ox 99.2 F 83 15 167/77 96 07/28/17 17:05 07/28/17 17:05 07/28/17 17:05 07/28/17 17:05 07/28/17 17:05 General appearance: Present: cooperative, A&O X 3, no acute distress, answers questions appropriately - Head Head exam: Present: atraumatic, normocephalic - Eye Eye exam: Present: PERRL, conjuntiva pink, sclera anicteric Pupils: Present: PERRL - ENT Additional comments: Facial swelling and gingiva swelling but no swelling of the tongue and no discharge no bleed. - Neck Neck exam general surgery: Present: supple, trachea midline. Absent: lymphadenopathy - Respiratory Respiratory exam: Present: CTAB. Absent: accessory muscle use, rales, rhonchi, wheezes - Cardiovascular Cardiovascular exam: Present: RRR, +S1, +S2. Absent: diastolic murmur, gallop, rubs, systolic murmur - GI/Abdominal GI/Abdominal exam: Present: normal bowel sounds, soft, no peritoneal signs. Absent: distended, tenderness - Extremities Exam Extremities exam: Present: warm, radial pulses palpable and symmetrical. Absent : calf tenderness, cyanotic, pedal edema - Neurological Exam Neurological exam: Present: CN II-XII intact, oriented X3, no focal deficits. Absent: pronater drift, facial droop, speech deficit - Skin Skin exam: Present: dry, intact Internal Medicine: Result - Labs CBC & Chem 7: 07/28/17 05:33 07/28/17 05:33 Labs: Short CBC 07/28/17 Range/Units 05:33 WBC 10.4 (4.3-11.1) K/mcL Hgb 9.3 L (11.5-15.4) g/dL Hct 29.1 L (35.3-44.9) % Plt Count 437 H (140-400) K/mcL [facility] 07/28/17 05:33 Sodium 143 Potassium 3.3 L Chloride 117 H Carbon Dioxide 19 BUN 6 L Creatinine 0.60 Glucose 95 Calcium 8.0 L - VTE Reasons for not Prescribing Prophylaxis: Treatment not Indicated - Low risk for VTE Consult Discharge Plan - Plan Referrals: Franco Moreno MD [Primary Care Provider] -
[2017-07-28] MEDS: Carbidopa/Levodopa 25/100 TABLET PO SCH (20:32)
[2017-07-29] MEDS: *HR* Morphine 2 MG/ML SYRINGE IVP PRN ×6 (01:41→20:43)
[2017-07-29] MEDS: Ampicillin/Sulbactam 3,000 MG in 0.9 % Sodium Chloride 150 ML IVPB SCH ×4 (06:11→23:50)
[2017-07-29 06:32] LABS: Basophils % 0.4 %; Eosinophils # 0.1 K/mcL (0.0-0.6); Eosinophils % 0.8 %; Hematocrit 29.1 % (35.3-44.9); Hemoglobin 9.7 g/dL (11.5-15.4); Immature Granulocytes % 0.9 % (0-4); Lymphocytes # 1.9 K/mcL (0.6-4.6); Lymphocytes % 20.8 %; Mean Corpuscular HGB Conc 33.3 g/dL (31.6-35.5); Mean Corpuscular Hemoglobin 28.4 pg (28.0-33.3); Mean Corpuscular Volume 85.3 fL (83.0-100.0); Monocytes # 0.7 K/mcL (0.0-1.3); Monocytes % 7.4 %; Neutrophils # 6.4 K/mcL (1.6-8.9); Platelet Count 563 K/mcL (140-400); Red Blood Count 3.41 M/mcL (3.82-4.97); Red Cell Distribution Width 18.1 % (11.5-14.5); Segmented Neutrophils % 69.7 %
[2017-07-29 06:56] LABS: Alanine Aminotransferase 9 Units/L (0-55); Albumin 2.5 g/dL (3.5-5.0); Albumin/Globulin Ratio 0.6 (1.1-2.2); Alkaline Phosphatase 111 Units/L (38-126); Aspartate Amino Transferase 13 Units/L (5-34); BUN/Creatinine Ratio 10 (6-26); Bilirubin,Total 0.2 mg/dL (0.2-1.2); Blood Urea Nitrogen 6 mg/dL (7-20); Calcium 8.4 mg/dL (8.6-10.8); Carbon Dioxide 21 mEq/L (19-29); Chloride 115 mEq/L (98-109); Globulin 3.9 g/dL (2.4-3.5); Glucose 80 mg/dL (70-99); Osmolality,Calculated 295 (280-300); Potassium 3.2 mEq/L (3.5-4.5); Sodium 144 mEq/L (136-145); Total Protein 6.4 g/dL (6.0-8.3); eGFR For African Americans > 60 (> 60); eGFR For Non-African Americans > 60 (> 60)
--- NOTE | 2017-07-29 09:39 | Discharge Summary ---
"Date of Encounter: 07/29/17 Time of Encounter: 09:31 - Discharge Diagnosis (1) Abscess of jaw, left Priority: Primary Status: Acute (2) Hypokalemia Priority: Secondary Status: Acute (3) S/P tooth extraction Priority: Secondary Status: Acute (4) Thrush, oral Priority: Secondary Status: Acute - Discharge Medications Prescriptions: Clindamycin HCl 300 mg PO TID #30 capsule Nystatin [Nystatin Suspension] 100,000 ml PO QID 10 Days #160 oral.susp PredniSONE [Deltasone] 20 mg PO BID #6 tablet Tramadol HCl [Ultram] 50 mg PO QID PRN #20 tab PRN Reason: Pain Home Medications: Carbidopa/Levodopa [Carbidopa-Levodopa 25-100 Tab] 1 tab PO BID 07/27/17 [ History] Gabapentin [Neurontin] 300 mg PO TID 07/27/17 [History] HydrOXYzine Pamoate [Vistaril] 50 mg PO TID 07/27/17 [History] Tamoxifen Citrate 20 mg PO DAILY 07/27/17 [History] Venlafaxine XR (24 HR) [Effexor XR] 75 mg PO DAILY 07/27/17 [History] Clindamycin HCl 300 mg PO TID #30 capsule 07/29/17 [Rx] Nystatin [Nystatin Suspension] 100,000 ml PO QID 10 Days #160 oral.susp [Rx] PredniSONE [Deltasone] 20 mg PO BID #6 tablet 07/29/17 [Rx] Tramadol HCl [Ultram] 50 mg PO QID PRN #20 tab 07/29/17 [Rx] Allergies/Adverse Reactions: 3 Allergy/AdvReac Type Severity Reaction Status Date / Time No Known Allergies Allergy Verified 07/26/17 14:31 Date of admission: 07/26/17 22:17 Primary care physician: Franco Moreno MD Discharging clinician: Nehemias Nicole Anticipated date of discharge: 07/29/17 - Patient Status Disposition: Home, Self-Care Condition: Fair Overall status at discharge: patient is progressing back to baseline - Discharge Instructions Follow Up With: Franco Moreno MD [Primary Care Provider] - - Diet and Activity Activity: resume usual activities as tolerated Diet: advance to your usual diet Hospital course: Ms. Johnson is a 52 year old female admitted for left buccal abscess after she had tooth extraction 2 weeks ago. ENT was consulted she had incision and drainage. She has been placed on clindamycin. She has developed oral thrush for which she takes nystatin. ENT has recommended short course of steroids without taper. She has some trismus but according to ENT it would last for a few days but this should not stop her discharge. Her potassium is low which is supplemented and will see if she is having diarrhea. Otherwise she can be discharged. - Time Spent with Patient Total time spent providing and/or coordinating discharge services: Greater than 30 minutes - Constitutional Vitals: Temp Pulse Resp BP Pulse Ox 98.5 F 71 15 150/74 99 07/29/17 07:32 07/29/17 07:32 07/29/17 07:32 07/29/17 07:32 07/29/17 07:32 General appearance: Present: cooperative, A&O X 3, no acute distress, answers questions appropriately - Head Head exam: Present: atraumatic, normocephalic Additional comments: | - Eye Eye exam: Present: PERRL, conjuntiva pink, sclera anicteric Pupils: Present: PERRL - ENT Additional comments: Left buccal swelling which is improving no discharge, oral thrush improved - Neck Neck exam general surgery: Present: supple, trachea midline. Absent: lymphadenopathy - Respiratory Respiratory exam: Present: CTAB. Absent: accessory muscle use, rales, rhonchi, wheezes - Cardiovascular Cardiovascular exam: Present: RRR, +S1, +S2. Absent: diastolic murmur, gallop, rubs, systolic murmur - GI/Abdominal GI/Abdominal exam: Present: normal bowel sounds, soft, no peritoneal signs. Absent: distended, tenderness - Extremities Exam Extremities exam: Present: warm, radial pulses palpable and symmetrical. Absent : calf tenderness, cyanotic, pedal edema - Neurological Exam Neurological exam: Present: CN II-XII intact, oriented X3, no focal deficits. Absent: pronater drift, facial droop, speech deficit - Skin Skin exam: Present: dry, intact - VTE Reasons for not Prescribing Prophylaxis: Treatment not Indicated - Low risk for VTE"
[2017-07-29] MEDS: Gabapentin 300 MG CAPSULE PO SCH ×3 (09:52→20:31)
[2017-07-29] MEDS: Venlafaxine XR (24 HR) 75 MG CAP.ER.24H PO SCH (09:52)
[2017-07-29] MEDS: Carbidopa/Levodopa 25/100 TABLET PO SCH ×2 (09:52→20:31)
[2017-07-29] MEDS: Famotidine 20 MG TABLET PO SCH ×2 (09:52→20:31)
[2017-07-29] MEDS: Nystatin SUSP 5 ML UD.LIQ PO SCH ×4 (09:53→20:31)
[2017-07-30] MEDS: *HR* Morphine 2 MG/ML SYRINGE IVP PRN ×4 (00:12→11:32)
[2017-07-30 04:45] LABS: Basophils # 0.1 K/mcL (0.0-0.2); Basophils % 0.6 %; Eosinophils # 0.4 K/mcL (0.0-0.6); Eosinophils % 4.7 %; Hematocrit 30.2 % (35.3-44.9); Hemoglobin 9.7 g/dL (11.5-15.4); Immature Granulocytes % 0.6 % (0-4); Lymphocytes # 2.8 K/mcL (0.6-4.6); Mean Corpuscular HGB Conc 32.1 g/dL (31.6-35.5); Mean Corpuscular Hemoglobin 27.7 pg (28.0-33.3); Mean Corpuscular Volume 86.3 fL (83.0-100.0); Mean Platelet Volume 9.2 fL (9.4-12.4); Monocytes # 0.6 K/mcL (0.0-1.3); Monocytes % 7.2 %; Neutrophils # 4.8 K/mcL (1.6-8.9); Platelet Count 578 K/mcL (140-400); Red Cell Distribution Width 18.1 % (11.5-14.5); Segmented Neutrophils % 54.9 %
[2017-07-30 05:01] LABS: Alanine Aminotransferase 8 Units/L (0-55); Albumin 2.5 g/dL (3.5-5.0); Albumin/Globulin Ratio 0.7 (1.1-2.2); Alkaline Phosphatase 116 Units/L (38-126); Aspartate Amino Transferase 21 Units/L (5-34); BUN/Creatinine Ratio 10 (6-26); Bilirubin,Total 0.2 mg/dL (0.2-1.2); Blood Urea Nitrogen 6 mg/dL (7-20); Calcium 8.6 mg/dL (8.6-10.8); Carbon Dioxide 27 mEq/L (19-29); Chloride 111 mEq/L (98-109); Globulin 3.6 g/dL (2.4-3.5); Glucose 93 mg/dL (70-99); Osmolality,Calculated 295 (280-300); Potassium 3.8 mEq/L (3.5-4.5); Sodium 144 mEq/L (136-145); Total Protein 6.1 g/dL (6.0-8.3); eGFR For African Americans > 60 (> 60); eGFR For Non-African Americans > 60 (> 60)
[2017-07-30] MEDS: Ampicillin/Sulbactam 3,000 MG in 0.9 % Sodium Chloride 150 ML IVPB SCH ×2 (05:59→12:02)
[2017-07-30] MEDS: Carbidopa/Levodopa 25/100 TABLET PO SCH (07:39)
[2017-07-30] MEDS: Famotidine 20 MG TABLET PO SCH (07:39)
[2017-07-30] MEDS: Venlafaxine XR (24 HR) 75 MG CAP.ER.24H PO SCH (07:39)
[2017-07-30] MEDS: Gabapentin 300 MG CAPSULE PO SCH (07:39)
[2017-07-30] MEDS: Nystatin SUSP 5 ML UD.LIQ PO SCH ×2 (07:40→12:03)
[2017-07-30 10:13] VITALS: BP 137/67
--- NOTE | 2017-07-30 15:02 | Internal Med Progress Note ---
Date of Encounter: 07/30/17 Time of Encounter: 15:01 - Assessment and plan (1) Abscess of jaw, left Current Visit: Yes Status: Acute (2) Hypokalemia Current Visit: Yes Status: Acute (3) S/P tooth extraction Current Visit: Yes Status: Acute (4) Thrush, oral Current Visit: Yes Status: Acute - Subjective Interval history: Admitted for dental abscess. Discussed the case with ENT. Afebrile WBC count is corrected.. ENT recommended prednisone. Potassium was low and supplemental potassium was given yesterday and it is corrected now. Apparently she has been having this problem for a while along with some diarrhea. Her diarrhea is loose. Her family doctor has put her on some potassium supplementation and working on it. We advised patient to continue following this problem with her family doctor regarding to advise and probably get an appointment next week to let him see. - Constitutional Vitals: Temp Pulse Resp BP Pulse Ox 98.3 F 76 14 137/67 96 07/30/17 10:12 07/30/17 10:12 07/30/17 10:12 07/30/17 10:12 07/30/17 10:12 General appearance: Present: cooperative, A&O X 3, no acute distress, answers questions appropriately - Head Head exam: Present: atraumatic, normocephalic Additional comments: Swelling has come down on the left jaw and neck area is nontender can open and close jaw eating food okay no diarrhea - Eye Eye exam: Present: PERRL, conjuntiva pink, sclera anicteric Pupils: Present: PERRL - Neck Neck exam general surgery: Present: supple, trachea midline. Absent: lymphadenopathy - Respiratory Respiratory exam: Present: CTAB. Absent: accessory muscle use, rales, rhonchi, wheezes - Cardiovascular Cardiovascular exam: Present: RRR, +S1, +S2. Absent: diastolic murmur, gallop, rubs, systolic murmur - GI/Abdominal GI/Abdominal exam: Present: normal bowel sounds, soft, no peritoneal signs. Absent: distended, tenderness - Extremities Exam Extremities exam: Present: warm, radial pulses palpable and symmetrical. Absent : calf tenderness, cyanotic, pedal edema - Neurological Exam Neurological exam: Present: CN II-XII intact, oriented X3, no focal deficits. Absent: pronater drift, facial droop, speech deficit - Skin Skin exam: Present: dry, intact Internal Medicine: Result - Labs CBC & Chem 7: 07/30/17 04:30 07/30/17 04:30 Labs: Short CBC 07/30/17 Range/Units 04:30 WBC 8.7 (4.3-11.1) K/mcL Hgb 9.7 L (11.5-15.4) g/dL Hct 30.2 L (35.3-44.9) % Plt Count 578 H (140-400) K/mcL Neutrophils # 4.8 (1.6-8.9) K/mcL BMP 07/30/17 04:30 Sodium 144 Potassium 3.8 Chloride 111 H Carbon Dioxide 27 BUN 6 L Creatinine 0.61 Glucose 93 Calcium 8.6 Liver Function 07/30/17 Range/Units 04:30 Total Bilirubin 0.2 (0.2-1.2) mg/dL AST 21 (5-34) Units/L ALT 8 (0-55) Units/L Alkaline Phosphatase 116 (38-126) Units/L Albumin 2.5 L (3.5-5.0) g/dL - VTE Reasons for not Prescribing Prophylaxis: Treatment not Indicated - Low risk for VTE Consult Discharge Plan - Plan Instructions: Dental Abscess (GEN) Referrals: Franco Moreno MD [Primary Care Provider] - (Web request sent on 07/30.) Prescriptions: Clindamycin HCl 300 mg PO TID #30 capsule Nystatin [Nystatin Suspension] 100,000 ml PO QID 10 Days #160 oral.susp PredniSONE [Deltasone] 20 mg PO BID #6 tablet Tramadol HCl [Ultram] 50 mg PO QID PRN #20 tab PRN Reason: Pain
== END 2017-07-30 13:40 | disposition home or self-care (01) | DRG 364 ==
LOC: 3ANU 14:25 → EMEROO 14:25 → 3ANU 18:47
PROVIDERS: ADMIT Internal Medicine; ATTEND Internal Medicine